=== PATIENT | female | born 1980 | race Caucasian/White ===

== ENCOUNTER 2017-07-22 19:18 | Emergency (ER) | payer BC ==
[2017-07-22] MEDS ORDERED: ONDANSETRON HCL IV 4 MG/2 ML VIAL IV ONE (20:13)
[2017-07-22] MEDS ORDERED: 0.9 % SODIUM CHLORIDE 1,000 ML BAG IV ONE (20:13)
--- NOTE | 2017-07-22 20:15 | Emergency Department Record ---
History of Present Illness - General Chief Complaint: Abdominal Pain Stated Complaint: ABDOMEN PAIN,CONSTIPATION X6WKS Time Seen by Provider: 07/22/17 20:10 Source: Patient Mode of Arrival: Ambulatory - History of Present Illness Initial Comments: The patient states she has not has a BM for maybe a month, and has been in increasing abdominal pain over the past 3 day weekend. She is nauseated, but not vomiting. Her LMP was 3 weeks ago. She denies fever, back pain, vomiting, vaginal DC. She has tried stool softeners, H20 and prune juice. MD Complaint: Abdominal pain Onset/Timin -: Week(s) Location: Diffuse Radiation: Back Quality: Aching, Cramping, Sharp Consistency: Constant, Getting worse Associated Symptoms: Constipation, Nausea - Related Data LMP (females 10-50): 3 weeks ago Home Medications Medication Instructions Recorded Confirmed Last Taken Memantine HCl [Namenda] 10 mg PO BID 07/22/17 07/22/17 07/22/17 Allergies Allergy/AdvReac Type Severity Reaction Status Date / Time trazodone Allergy Intermediate BEHAVIORAL Verified 07/22/17 19:49 CHANGES Travel Screening - Travel/Exposure Within Last 30 Days Have you traveled within the last 30 days?: No - Travel Symptoms Symptom Screening: None Past Medical History - SOCIAL HISTORY Smoking Status: Never smoker - RESPIRATORY Hx Respiratory Disorders: No - CARDIOVASCULAR Hx Cardio Disorders: No - NEURO Hx Neuro Disorders: Yes Hx Headaches: Yes - GI Hx GI Disorders: No - Hx Genitourinary Disorders: Yes Hx Kidney Stones: Yes - ENDOCRINE Hx Endocrine Disorders: No - MUSCULOSKELETAL Hx Musculoskeletal Disorders: Yes Hx Arthritis: Yes Hx Fibromyalgia: Yes - PSYCH Hx Psych Problems: No - HEMATOLOGY/ONCOLOGY Hx Hematology/Oncology Disorders: No Family Medical History Any Significant Family History?: Yes Hx Cancer: Grandparents Hx Diabetes: Grandparents Physical Exam - General General Appearance: Alert, Oriented x3, Cooperative, Severe distress (crying) - Head Head exam: Normal inspection - Eye Eye exam: Normal appearance, PERRL Pupils: Normal accommodation - ENT ENT exam: Normal exam, Mucous membranes moist, Normal external ear exam, Normal orophraynx, TM's normal bilaterally Ear exam: Normal external inspection. negative: External canal tenderness Nasal Exam: Normal inspection. negative: Discharge, Sinus tenderness Mouth exam: Normal external inspection, Tongue normal Teeth exam: Normal inspection. negative: Dental caries Throat exam: Normal inspection. negative: Tonsillar erythema, Tonsillar exudate - Neck Neck exam: Normal inspection, Full ROM. negative: Tenderness - Respiratory Respiratory exam: Normal lung sounds bilaterally. negative: Respiratory distress - Cardiovascular Cardiovascular Exam: Regular rate, Normal rhythm, Normal heart sounds - GI/Abdominal GI/Abdominal exam: Soft, Normal bowel sounds, Tenderness (diffusely mildy tender , bloated, no rigidity). negative: Rebound, Rigid - Rectal Rectal exam: Deferred - exam: Deferred - Extremities Extremities exam: Normal inspection, Full ROM, Normal capillary refill. negative: Tenderness - Back Back exam: Reports: Normal inspection, Full ROM. Denies: CVA tenderness (R), CVA tenderness (L), Muscle spasm, Rash noted, Tenderness - Neurological Neurological exam: Alert, Normal gait, Oriented X3, Reflexes normal - Psychiatric Psychiatric exam: Normal affect, Normal mood - Skin Skin exam: Dry, Intact, Normal color, Warm Course Vital Signs 07/22/17 19:50 Temperature 98.7 F Pulse Rate 93 H Respiratory 18 Rate Blood Pressure 141/81 Pulse Ox 100 - Reevaluation(s) Reevaluation #1: Patient currently is more comfortable, awaiting enema. 07/22/17 22:03 Reevaluation #2: Good results with MOM enema. Patient ready for DC home. 07/22/17 23:57 Medical Decision Making - Management Options MDM Management: No Additional Work-up Planned - Data Complexity MDM Data: Labs Ordered and/or Reviewed, X-Ray Ordered and/or Reviewed (Abd/ Pelvis CT: No evidence of acute abnormality; bilateral non-obstructing renal calculi; colonic diverticulosis without diverticulitis. Per radiologist.) - Lab Data Result diagrams: 07/22/17 20:42 07/22/17 20:42 Disposition Disposition: Discharge Clinical Impression: Generalized abdominal pain Constipation Qualifiers: Constipation type: unspecified constipation type Qualified Code(s): K59.00 - Constipation, unspecified Disposition: Home, Self-Care Condition: (1) Good Instructions: Constipation (ED), Abdominal Pain (ED) Additional Instructions: Miralax as directed. High fiber diet. Fresh fruits and vegetables daily. No processed foods. Folllow up with PCP as needed. If no BM for 3 days, you could try half a bottle of MGCitrate to induce a BM. Quality - Quality Measures Quality Measures: N/A - Blood Pressure Screening Does Patient Have Any of the Following: No Blood Pressure Classification: Pre-Hypertensive BP Reading Systolic Measurement: 141 Diastolic Measurement: 81 Screening for High Blood Pressure: < Pre-Hypertensive BP, F/U Documented > [ G8950] Pre-Hypertensive Follow-up Interventions: Follow-up with rescreen every year.
[2017-07-22 20:49] LABS: BASO % 0.3 % (0-6); EOS % 0.7 % (0-6); GRAN % 65.4 % (47-80); HEMATOCRIT 40.3 % (35.0-47.0); HEMOGLOBIN 13.7 gm/dl (11.6-16.0); LYMPH % 27.9 % (16-45); MEAN CORPUSCULAR HEMOGLOBIN 29.6 pg (27-33); MEAN PLATELET VOLUME 9.2 fl (7.4-10.4); MONO % 5.7 % (0-9); PLATELET COUNT 315 K/uL (130-400); RED BLOOD COUNT 4.63 M/uL (3.80-5.40); RED CELL DISTRIBUTION WIDTH 12.2 % (11.5-14.5); URINE APPEARANCE CLEAR; URINE BILIRUBIN NEGATIVE (NEGATIVE); URINE BLOOD NEGATIVE (NEGATIVE); URINE COLOR YELLOW; URINE GLUCOSE (UA) NEGATIVE (NEGATIVE); URINE KETONE NEGATIVE (NEGATIVE); URINE LEUKOCYTE ESTERASE NEGATIVE (NEGATIVE); URINE NITRITE NEGATIVE (NEGATIVE); URINE PROTEIN NEGATIVE (NEGATIVE); URINE UROBILINOGEN 0.2 E.U./dL (0.20 - 1.00); WHITE BLOOD COUNT W/O DIFF 10.1 K/uL (4.2-12.2)
[2017-07-22 20:52] LABS: HCG,QUALITATIVE URINE NEGATIVE (NEGATIVE)
[2017-07-22 21:06] LABS: ALB/GLOB RATIO 1.6 (1.1-1.8); ALBUMIN 4.4 g/dL (4.0-5.0); ALKALINE PHOSPHATASE 62 U/L (35-104); ALT/SGPT 38 U/L (<33); AST/SGOT 28 U/L (10.0-35.0); BLOOD UREA NITROGEN 8 mg/dL (6-20); CREATININE 0.6 mg/dL (0.5-0.9); EST GLOMERULAR FILTRATION RATE > 60 mL/min; GLUCOSE,RANDOM 85 mg/dL (74-109); LIPASE 41 U/L (13-60); TOTAL PROTEIN 7.2 g/dL (6.6-8.7)
[2017-07-22 21:14] LABS: THYROID STIMULATING HORMONE 2.92 uIU/mL (0.270-4.20)
--- NOTE | 2017-07-23 14:21 | CT SCAN REPORT ---
EXAM: CT OF THE ABDOMEN AND PELVIS WITHOUT CONTRAST HISTORY: SHARP LOWER ABDOMINAL PAIN FOR FOUR WEEKS. TECHNIQUE: Routine noncontrast CT images of the abdomen and pelvis were obtained. FINDINGS: The visualized lung bases are unremarkable. The liver, gallbladder, pancreas, spleen and adrenals have a normal noncontrast appearance. There are tiny bilateral intrarenal calculi. No ureteral calculi or hydronephrosis. There is scattered colonic diverticulosis without CT evidence of diverticulitis. The appendix has a normal CT appearance. The uterus is present. The bladder is unremarkable. No abdominal or pelvic lymphadenopathy. The aorta is normal in caliber. The abdominal wall soft tissues are unremarkable. No acute osseous abnormality. IMPRESSION: 1. TINY NONOBSTRUCTING INTRARENAL CALCULI. 2. COLONIC DIVERTICULOSIS WITHOUT CT EVIDENCE OF DIVERTICULITIS. JOB NUMBER: [id number] MTDD
== END 2017-07-23 00:42 | disposition home or self-care (01) ==
LOC: ER 19:18
DX: K59.00 Constipation, unspecified (principal); R10.84 Generalized abdominal pain; R11.0 Nausea
CPT/HCPCS: 99284 ×2; 96374; 83690; 85025; 80053; 81003; 84443; 81025; 74176; J2405; J7030

== ENCOUNTER 2017-12-02 14:36 | Emergency (ER) | payer BC ==
[2017-12-02] MEDS ORDERED: 0.9 % SODIUM CHLORIDE 1,000 ML BAG IV ONE (14:59)
[2017-12-02] MEDS ORDERED: DIPHENHYDRAMINE HCL IV 50 MG/ML VIAL IVP ONE (14:59)
[2017-12-02] MEDS ORDERED: METOCLOPRAMIDE HCL 10 MG/2 ML VIAL IVP ONE (14:59)
[2017-12-02] MEDS ORDERED: KETOROLAC 30 MG/ML VIAL IVP ONE ×2 (14:59→16:05)
--- NOTE | 2017-12-02 15:07 | Emergency Department Record ---
History of Present Illness - General Chief Complaint: Headache Migraine Stated Complaint: MIGRAINE Time Seen by Provider: 12/02/17 14:54 Source: Patient Mode of Arrival: Ambulatory Limitations: No limitations - History of Present Illness Initial Comments: The patient is here due to having a headache for the last 10 days. The pain is mainly an aching throbbing discomfort that she feels over the frontal area and in the neck. She has no nausea, vomiting, visual changes or weakness but light does bother her PRETTY mildly. The patient has a long hx of similar issues and does see a PRETTY specialist. This pain is similar to her chronic PRETTY symptoms. She denies any trauma, injury, fever, chills, or diarrhea. MD Complaint: Headache Onset/Timin -: Days(s) Onset Description: Gradual Location: Diffuse Severity: Moderate Quality: Aching, Throbbing, Similar to previous headaches - Related Data Home Medications Medication Instructions Recorded Confirmed Last Taken Gabapentin [Neurontin] 100 mg PO 12/02/17 12/01/17 Rizatriptan Benzoate [Maxalt] 10 mg PO 12/02/17 12/01/17 15:00 Allergies Allergy/AdvReac Type Severity Reaction Status Date / Time trazodone Allergy Intermediate BEHAVIORAL Verified 12/02/17 14:42 CHANGES Travel Screening - Travel/Exposure Within Last 30 Days Have you traveled within the last 30 days?: No - Travel/Exposure Within Last Year Have you traveled outside the [place] in the last year?: No - Additonal Travel Details Have you been exposed to anyone with a communicable illness?: No Review of Systems Constitutional: Denies: Chills, Fever Eyes: Denies: Eye discharge ENT: Reports: Congestion Respiratory: Denies: Cough, Dyspnea Cardiovascular: Denies: Arrhythmia, Chest pain Past Medical History - SOCIAL HISTORY Smoking Status: Never smoker Alcohol Use: Rare Drug Use: None - RESPIRATORY Hx Respiratory Disorders: No - CARDIOVASCULAR Hx Cardio Disorders: No - NEURO Hx Neuro Disorders: Yes Hx Headaches: Yes - GI Hx GI Disorders: No - Hx Genitourinary Disorders: Yes Hx Kidney Stones: Yes - ENDOCRINE Hx Endocrine Disorders: No - MUSCULOSKELETAL Hx Musculoskeletal Disorders: Yes Hx Arthritis: Yes Hx Fibromyalgia: Yes - PSYCH Hx Psych Problems: No - HEMATOLOGY/ONCOLOGY Hx Hematology/Oncology Disorders: No Family Medical History Any Significant Family History?: Yes Hx Cancer: Grandparents Hx Diabetes: Grandparents Physical Exam - General General Appearance: Alert, Oriented x3, Cooperative, No acute distress - Head Head exam: Atraumatic, Normocephalic, Normal inspection - Eye Eye exam: Normal appearance, PERRL - ENT ENT exam: Normal exam, Mucous membranes moist, Normal external ear exam, Normal orophraynx, TM's normal bilaterally Throat exam: Normal inspection. negative: Tonsillar erythema, Tonsillar exudate - Neck Neck exam: Normal inspection, Full ROM, Tenderness (There is mild tenderness to the posterior cervical muscles bilaterally.). negative: Meningismus - Respiratory Respiratory exam: Normal lung sounds bilaterally. negative: Respiratory distress - Cardiovascular Cardiovascular Exam: Regular rate, Normal rhythm, Normal heart sounds - GI/Abdominal GI/Abdominal exam: Soft, Normal bowel sounds. negative: Tenderness - Extremities Extremities exam: Normal inspection, Full ROM, Normal capillary refill. negative: Tenderness - Neurological Neurological exam: Alert, Normal gait, Oriented X3, Other (Neg Drift and Rhomberg exams.). negative: Abnormal gait, Altered, Motor sensory deficit Course Vital Signs 12/02/17 14:47 Temperature 97.6 F Pulse Rate 81 Respiratory 16 Rate Blood Pressure 127/83 Pulse Ox 100 - Reevaluation(s) Reevaluation #1: The patient is resting comfortably at this time. She is feeling better and the pain is improving. 12/02/17 16:40 Reevaluation #2: The patient is doing a lot better at this time and feels ready for home. I did discuss the neg head CT with her and that her sinuses appear normal. 12/02/17 17:34 Medical Decision Making - Data Complexity MDM Data: X-Ray Ordered and/or Reviewed - Radiology Data Radiology results: Report reviewed (Head CT: Neg per Rad.) Disposition Disposition: Discharge Clinical Impression: Migraine Qualifiers: Migraine type: unspecified Status migrainosus presence: without status migrainosus Intractability: not intractable Qualified Code(s): G43.909 - Migraine, unspecified, not intractable, without status migrainosus Disposition: Home, Self-Care Condition: (2) Stable Instructions: Migraine Headache (ED) Additional Instructions: Please continue your regular medicines and see your family doctor or your headache specialist later this week if not better. Return to the ER for any worsening symptoms. Forms: Patient Portal Access Time of Disposition: 17:36 Quality - Quality Measures Quality Measures: N/A - Blood Pressure Screening View Details: Yes Does Patient Have Any of the Following: No Blood Pressure Classification: Pre-Hypertensive BP Reading Systolic Measurement: 127 Diastolic Measurement: 83 Screening for High Blood Pressure: < Pre-Hypertensive BP, F/U Documented > [ G8950] Pre-Hypertensive Follow-up Interventions: Referral to alternative/primary care provider.
[2017-12-02] MEDS ORDERED: METHYLPREDNISOLONE PF 125MG/VIAL IVP ONE (16:05)
--- NOTE | 2017-12-03 20:31 | CT SCAN REPORT ---
EXAM: CT SCAN HEAD WO CONTRAST HISTORY: FRONTAL HEADACHE FOR TEN DAYS. TECHNIQUE: Routine noncontrast CT examination of the head. COMPARISON: MRI of the cervical spine without contrast dated 10/21/2016. FINDINGS: The ventricles and subarachnoid spaces are normal in size. No area of abnormally increased or decreased or attenuation is noted throughout the brain substance. No abnormal extraaxial fluid collection is seen, nor is there skull fracture. The visualized paranasal sinuses and mastoid air cells are clear. The orbits as visualized are unremarkable. IMPRESSION: NEGATIVE NONCONTRAST CT APPEARANCE OF THE HEAD. JOB NUMBER: [id number] MTDD
== END 2017-12-02 17:51 | disposition home or self-care (01) ==
LOC: ER 14:36
DX: G43.909 Migraine, unspecified, not intractable, without status migrainosus (principal)
CPT/HCPCS: 99284 ×2; 96376; 96374; 96375; 70450; J1885; J1200; J2765; J2930; J7030

== ENCOUNTER 2019-06-02 14:40 | Emergency (ER) | payer BC, OTHER ==
[2019-06-02 16:13] LABS: ABSOLUTE NEUTROPHIL COUNT 8.47; BASO % 0.2 % (0-6); EOS % 1.7 % (0-6); GRAN % 78.5 % (47-80); HEMATOCRIT 43.6 % (35.0-47.0); HEMOGLOBIN 14.7 gm/dl (11.6-16.0); MEAN CORPUSCULAR HGB CONC 33.7 g/dl (32-36); MEAN PLATELET VOLUME 9.4 fl (7.4-10.4); MONO % 6.6 % (0-9); PLATELET COUNT 289 K/uL (130-400); RED BLOOD COUNT 4.74 M/uL (3.80-5.40); RED CELL DISTRIBUTION WIDTH 13.3 % (11.5-14.5); WHITE BLOOD COUNT W/O DIFF 10.8 K/uL (4.2-12.2)
[2019-06-02 16:25] LABS: STREP A SCREEN NEGATIVE (NEGATIVE)
--- NOTE | 2019-06-02 16:32 | Emergency Department Record ---
History of Present Illness - General Chief Complaint: Difficulty Breathing Stated Complaint: HARD BREATHING/COUGH/SORE THROAT Time Seen by Provider: 06/02/19 15:39 Source: Patient Mode of Arrival: Ambulatory Limitations: No limitations - History of Present Illness Initial Comments: pt has had a cough, congestion and sore throat for 5 days. MD Complaint: Cough Onset/Timin -: Days(s) Consistency: Intermittent Improves With: Nothing Worsens With: Nothing Context: Recent URI Associated Symptoms: Cough - Related Data Home Medications Medication Instructions Recorded Confirmed Last Taken Clonazepam [Klonopin] 1 mg PO QHS 06/02/19 06/02/19 06/01/19 Venlafaxine HCl [Effexor Xr] 75 mg PO DAILY 06/02/19 06/02/19 06/02/19 Allergies Allergy/AdvReac Type Severity Reaction Status Date / Time trazodone Allergy Intermediate BEHAVIORAL Verified 12/02/17 14:42 CHANGES Travel Screening - Travel/Exposure Within Last 30 Days Have you traveled within the last 30 days?: No - Travel/Exposure Within Last Year Have you traveled outside the [place] in the last year?: No - Additonal Travel Details Have you been exposed to anyone with a communicable illness?: No Review of Systems Reviewed: No additional complaints except as noted below Constitutional: Reports: As per HPI. Denies: Chills, Fever, Malaise, Night sweats, Weakness, Weight change Eyes: Reports: As per HPI. Denies: Eye discharge, Eye pain, Photophobia, Vision change ENT: Reports: As per HPI, Congestion, Throat pain. Denies: Dental pain, Ear pain, Epistaxis, Hearing loss Respiratory: Reports: As per HPI, Cough. Denies: Dyspnea, Hemoptysis, Stridor, Wheezes Cardiovascular: Reports: As per HPI. Denies: Arrhythmia, Chest pain, Dyspnea on exertion, Edema, Murmurs, Orthopnea, Palpitations, Paroxysmal nocturnal dyspnea, Rheumatic Fever, Syncope Endocrine: Reports: As per HPI. Denies: Fatigue, Heat or cold intolerance, Polydipsia, Polyuria Gastrointestinal: Reports: As per HPI. Denies: Abdominal pain, Constipation, Diarrhea, Hematemesis, Hematochezia, Melena, Nausea, Vomiting Genitourinary: Reports: As per HPI. Denies: Abnormal menses, Discharge, Dyspareunia, Dysuria, Frequency, Hematuria, Incontinence, Retention, Urgency Musculoskeletal: Reports: As per HPI. Denies: Arthralgia, Back pain, Gout, Joint swelling, Myalgia, Neck pain Skin: Reports: As per HPI. Denies: Bruising, Change in color, Change in hair/nails, Lesions, Pruritus, Rash Neurological: Reports: As per HPI. Denies: Abnormal gait, Confusion, Headache, Numbness, Paresthesias, Seizure, Tingling, Tremors, Vertigo, Weakness Psychiatric: Reports: As per HPI. Denies: Anxiety, Auditory hallucinations, Depression, Homicidal thoughts, Suicidal thoughts, Visual hallucinations Hematological/Lymphatic: Reports: As per HPI. Denies: Anemia, Blood Clots, Easy bleeding, Easy bruising, Swollen glands Past Medical History - SOCIAL HISTORY Smoking Status: Never smoker Alcohol Use: Rare Drug Use: None - RESPIRATORY Hx Respiratory Disorders: Yes Hx Pneumonia: Yes - CARDIOVASCULAR Hx Cardio Disorders: No - NEURO Hx Neuro Disorders: Yes Hx Headaches: Yes - GI Hx GI Disorders: No - Hx Genitourinary Disorders: Yes Hx Kidney Stones: Yes - ENDOCRINE Hx Endocrine Disorders: No - MUSCULOSKELETAL Hx Musculoskeletal Disorders: Yes Hx Arthritis: Yes Hx Fibromyalgia: Yes - PSYCH Hx Psych Problems: No - HEMATOLOGY/ONCOLOGY Hx Hematology/Oncology Disorders: No Family Medical History Any Significant Family History?: No Hx Cancer: Grandparents Hx Diabetes: Grandparents Physical Exam - General General Appearance: Alert, Oriented x3, Cooperative, No acute distress - Head Head exam: Normal inspection - Eye Eye exam: Normal appearance, PERRL, EOMI Pupils: Normal accommodation - ENT ENT exam: Normal exam, Mucous membranes moist, Normal external ear exam, Normal orophraynx, TM's normal bilaterally Ear exam: Normal external inspection. negative: External canal tenderness Nasal Exam: Normal inspection. negative: Discharge, Sinus tenderness Mouth exam: Normal external inspection, Tongue normal Teeth exam: Normal inspection. negative: Dental caries Throat exam: Normal inspection. negative: Tonsillar erythema, Tonsillar exudate - Neck Neck exam: Normal inspection, Full ROM. negative: Tenderness - Respiratory Respiratory exam: Normal lung sounds bilaterally. negative: Respiratory distress - Cardiovascular Cardiovascular Exam: Regular rate, Normal rhythm, Normal heart sounds - GI/Abdominal GI/Abdominal exam: Soft, Normal bowel sounds. negative: Tenderness - Rectal Rectal exam: Deferred - exam: Deferred - Extremities Extremities exam: Normal inspection, Full ROM, Normal capillary refill. negative: Tenderness - Back Back exam: Reports: Normal inspection, Full ROM. Denies: Muscle spasm, Rash noted, Tenderness - Neurological Neurological exam: Alert, Normal gait, Oriented X3, Reflexes normal - Psychiatric Psychiatric exam: Normal affect, Normal mood - Skin Skin exam: Dry, Intact, Normal color, Warm Course Vital Signs 06/02/19 14:43 Temperature 98.6 F Pulse Rate 95 H Respiratory 20 Rate Blood Pressure 136/94 Pulse Ox 100 Medical Decision Making - Lab Data Result diagrams: 06/02/19 16:05 Lab Results 06/02/19 06/02/19 Range/Units 16:05 16:05 WBC 10.8 (4.2-12.2) K/uL RBC 4.74 (3.80-5.40) M/uL Hgb 14.7 (11.6-16.0) gm/dl Hct 43.6 (35.0-47.0) % MCV 92.0 (81-97) fl MCH 31.0 (27-33) pg MCHC 33.7 (32-36) g/dl RDW 13.3 (11.5-14.5) % Plt Count 289 (130-400) K/uL MPV 9.4 (7.4-10.4) fl Gran % 78.5 (47-80) % Lymphocytes % 13.0 L (16-45) % Monocytes % 6.6 (0-9) % Eosinophils % 1.7 (0-6) % Basophils % 0.2 (0-6) % Absolute Neutrophils 8.47 Group A Strep Screen Negative (NEGATIVE) Disposition Disposition: Discharge Clinical Impression: Viral syndrome Disposition: Home, Self-Care Condition: (1) Good Instructions: Viral Syndrome (ED) Additional Instructions: follow up with family doctor. return sooner if worse.push fluids. dayquil and nyquil for symptoms Forms: Patient Portal Access, Return to Work/School Quality - Quality Measures Quality Measures: N/A - Blood Pressure Screening Does Patient Have Any of the Following: No Blood Pressure Classification: Hypertensive Reading Systolic Measurement: 136 Diastolic Measurement: 94 Screening for High Blood Pressure: < First Hypertensive BP, F/U Documented > [G8950] First Hypertensive Follow-up Interventions: Follow-up with rescreen GT 1 day and LT 4 weeks.
[2019-06-02 16:37] LABS: INFLUENZA A NEGATIVE (NEGATIVE); INFLUENZA B NEGATIVE (NEGATIVE)
--- NOTE | 2019-06-04 19:09 | RADIOLOGY REPORT ---
EXAM: CHEST 2 VIEWS HISTORY: COUGH AND DIFFICULTY BREATHING SINCE SUNDAY. SORE THROAT. TECHNIQUE: PA and lateral upright views of the chest were obtained. COMPARISON: None. FINDINGS: The heart, mediastinum, and pulmonary vasculature are normal. The lungs are clear. There is no pneumothorax or effusion. The bones appear intact. IMPRESSION: NO ACUTE CHEST PATHOLOGY. JOB NUMBER: [id number] MTDD
== END 2019-06-02 17:25 | disposition home or self-care (01) ==
LOC: ER 14:40
DX: B34.9 Viral infection, unspecified (principal); R06.00 Dyspnea, unspecified; R05 Cough; J02.9 Acute pharyngitis, unspecified
CPT/HCPCS: 71046; 85025; 87400; 87880; 99284